=== PATIENT | female | born 1985 | race Caucasian/White ===

== ENCOUNTER 2018-03-16 12:58 | Emergency (ER) | payer SELFPAY ==
[~2018-03-16] VITALS: Ht 172.7 cm; Wt 63.5 kg
[2018-03-16 13:07] VITALS: BP 129/66
--- NOTE | 2018-03-16 13:21 | NUR ---
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
[2018-03-16] MEDS ORDERED: OLANZAPINE 10 MG VIAL IM ONE ×2 (13:30→13:33)
[2018-03-16] MEDS ORDERED: WATER FOR INJECTION,STERILE 10 ML ONE (13:33)
--- NOTE | 2018-03-16 13:39 | NUR ---
PT REFUSING MEDS. 

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
--- NOTE | 2018-03-16 14:04 | NUR ---
PT ESCORTED OUT OF ED. D/C HOME IN STABLE CONDITION.
== END 2018-03-16 14:06 | disposition left against medical advice (07) ==
LOC: ER 13:02
DX: S70.362A Insect bite (nonvenomous), left thigh, initial encounter (principal); F11.10 Opioid abuse, uncomplicated; F10.10 Alcohol abuse, uncomplicated; F41.9 Anxiety disorder, unspecified; Y90.9 Presence of alcohol in blood, level not specified; Z59.0 Homelessness; W57.XXXA Bitten or stung by nonvenomous insect and other nonvenomous arthropods, initial encounter; Y93.89 Activity, other specified; Y92.89 Other specified places as the place of occurrence of the external cause; Y99.8 Other external cause status
CPT/HCPCS: A4606; J3490; Z7610